=== PATIENT | female | born 1940 | race Caucasian/White ===

== ENCOUNTER → 2019-02-17 | Outpatient (CLI) | payer MEDICARE, BC ==
--- NOTE | 2019-02-17 10:28 | Diagnostic Imaging Report ---
PATIENT HISTORY: FRACTURE OF RIGHT PATELLA. TECHNIQUE: Three views of the right knee COMPARISON: None FINDINGS: There is a minimally displaced transverse fracture through the right mid patella. There may be mild healing changes, though the fracture line remains clearly evident. There is moderate soft tissue edema about the right knee. IMPRESSION: Mild healing changes about the minimally displaced right patellar fracture. Dictated by: Dictated on workstation # [id number]
== END ==
LOC: RAD FS 08:54
PROVIDERS: ATTEND Nurse Practitioner
DX: S82.091D Other fracture of right patella, subsequent encounter for closed fracture with routine healing (principal)
CPT/HCPCS: 73562

== ENCOUNTER → 2019-03-03 | Outpatient (CLI) | payer MEDICARE, BC ==
--- NOTE | 2019-03-03 10:38 | Diagnostic Imaging Report ---
INDICATION: Patella fracture, followup. TECHNIQUE: Four views of the right knee. CORRELATION STUDY: 02/17/2019. FINDINGS: Predominantly transversely oriented fracture through the mid to inferior pole of the patella is again demonstrated. Very slight anterior offset at the anterior component appears unchanged. There are perhaps very slight interval healing changes noted. The fracture line, however, is still well visualized. Surrounding soft tissue edema. Visualized femur, tibia, and fibula are intact. IMPRESSION: No appreciable change in the alignment of the minimally displaced fracture of the inferior patella. There may be a suggestion of very early interval healing with slight blurring along the fracture line. Associated moderate soft tissue edema. Dictated by: Dictated on workstation # [id number]
== END ==
LOC: RAD FS 08:56
PROVIDERS: ATTEND Nurse Practitioner
DX: S82.034D Nondisplaced transverse fracture of right patella, subsequent encounter for closed fracture with routine healing (principal)
CPT/HCPCS: 73562

== ENCOUNTER → 2019-03-17 | Outpatient (CLI) | payer MEDICARE, BC ==
--- NOTE | 2019-03-17 12:12 | Diagnostic Imaging Report ---
INDICATION: Patellar fracture COMPARISON: March 03, 2019. TECHNIQUE: Three radiographs of the right knee dated March 17, 2019. FINDINGS: Transversely oriented fracture involving the mid inferior aspect of the patella is again identified. Fracture plane persists. Overall alignment is unchanged since the prior examination. No significant periosteal reaction identified this time. Overlying soft tissue swelling is again identified. No new fracture or dislocation. No destructive osseous process. No suspicious radiopaque foreign body. IMPRESSION: Minimally displaced fracture involving the inferior pole of the patella is again identified, appearing stable from the prior examination. No definite periosteal reaction is identified to suggest healing. Therefore, recommend continued radiographic followup to ensure healing. Dictated by: Dictated on workstation # [id number]
== END ==
LOC: RAD FS 08:49
PROVIDERS: ATTEND Nurse Practitioner
DX: S82.034D Nondisplaced transverse fracture of right patella, subsequent encounter for closed fracture with routine healing (principal)
CPT/HCPCS: 73562

== ENCOUNTER → 2019-04-07 | Outpatient (CLI) | payer MEDICARE, BC ==
--- NOTE | 2019-04-07 11:10 | Diagnostic Imaging Report ---
EXAMINATION: Right knee, 3 views. HISTORY: Fracture. COMPARISON: 03/17/2019. FINDINGS: There is unchanged alignment of a transverse fracture of the right patella. The degree of distraction is unchanged. The small knee joint effusion is stable. No other fracture is seen. The joint spaces are normal. IMPRESSION: Unchanged alignment of the transverse fracture of the patella with unchanged minimal distraction. Dictated by: Dictated on workstation # [id number]
== END ==
LOC: RAD FS 08:22
PROVIDERS: ATTEND Nurse Practitioner
DX: S82.034D Nondisplaced transverse fracture of right patella, subsequent encounter for closed fracture with routine healing (principal)
CPT/HCPCS: 73562